=== PATIENT | female | born 1960 | race Caucasian/White ===

== ENCOUNTER → 2018-11-23 | Outpatient (CLI) | payer BC ==
--- NOTE | 2018-11-23 08:34 | CT ---
EXAMINATION TYPE: CT sinus wo con DATE OF EXAM: 11/23/2018 COMPARISON: None HISTORY: Chronic sinusitis CT DLP: 602 mGycm CONTRAST: 0 mL of Isovue 300 The paranasal sinuses are examined in the axial plane at 2 mm thick sections. Reconstructed images i n the coronal plane were obtained. There is dental amalgam scatter artifact There is a retention cyst within the inferior right maxillary sinus. Small area of opacification is within the posterior lateral right ethmoid air cell The sphenoid sinuses are clear. The frontal sin uses are clear. Remaining paranasal sinuses and mastoid air cells are clear The septum is evaluated. There is septal deviation to the left. The ostiomeatal units are patent. Miguel Angel air cells are present. IMPRESSIONS: 1. Small retention cysts within the inferior right maxillary within the posterior right ethmoid air cell
== END | disposition home or self-care (01) ==
LOC: RADCTMAIN 07:50
PROVIDERS: ATTEND Otolaryngology
DX: J34.1 Cyst and mucocele of nose and nasal sinus (principal); J32.9 Chronic sinusitis, unspecified
CPT/HCPCS: 70486

== ENCOUNTER → 2024-06-21 | Day surgery (SDC) | payer MEDICARE, BC ==
--- NOTE | 2024-06-20 17:08 | HP ---
HISTORY AND PHYSICAL CHIEF COMPLAINT: Fluid in both ears. HISTORY OF PRESENT ILLNESS: This patient is a 63-year-old female, who was recently seen in my office, complaining of having a block sensation and pressure in both ears. She had recently experienced an upper respiratory tract infection and was treated with oral antibiotics and a Medrol Dosepak. After completing the medication, she noticed that there was pressure in both ears, and they felt plugged. At the time, the patient was seen in my office, clinical examination of the ears revealed chronic bilateral serous otitis media, so-called glue ear. The patient was given two courses of dexamethasone tablets. She was seen back in the office, and at that time, had stated there had been no improvement. Clinical examination of the ears reveals she still had fluid in both ears. It was, therefore, recommended that she undergo a bilateral myringotomy with insertion of ventilation tubes under IV sedation with MAC. PAST MEDICAL HISTORY: Reveals that she has allergies to aspirin, sulfa, and Macrobid. SURGICAL HISTORY: Previous surgeries include tonsillectomy, adenoidectomy, tubal ligation, colonoscopy, she is 3 para, 1 , and two C-sections. MEDICATIONS: Her current medications include: 1. Prozac. 2. Vitamin D. REVIEW OF SYSTEMS: Completely noncontributory. PHYSICAL EXAMINATION: GENERAL: This patient is a 63-year-old female, who is alert and cooperative. HEENT: The patient is normocephalic. Both tympanic membranes are dull with fluid in both middle ear spaces. Pupils equal, round, reactive to light and accommodation. Extraocular movements within normal limits. Intranasal examination reveals moderate septal deviation with compensatory hypertrophy of the inferior turbinates and a moderate amount of mucus on the mucous membranes and draining down the posterior pharynx. Examination of oropharynx and the remainder of the head and neck exam are within normal limits. CHEST/CARDIOVASCULAR: Both lung betts are clear. The patient is in regular sinus rhythm. S1, S2 are present without any murmurs, S3s, or S4s. Peripheral pulses are bilaterally symmetrical. ABDOMEN: There is no evidence of any masses, megaly, or tenderness. The abdomen is soft. SKIN: Unremarkable. MUSCULOSKELETAL: Within normal limits. NEUROLOGICAL: Within normal limits. PELVIC/RECTAL: This should be printed. The pelvic/rectal exam is deferred at this time because the patient has this done on a regular basis at her family physician's office. The remainder of the physical exam is essentially unremarkable. IMPRESSION: Chronic bilateral serous otitis media. PLAN: The patient is scheduled undergo a bilateral myringotomy with insertion of ventilation tubes under IV sedation with MAC. Attention, RNs in the pre-surgical area, I have not ordered any pre-surgical prophylactic antibiotics for this patient. If the Pharmacy Department sends any pre- surgical prophylactic antibiotic to the pre-surgical area for this patient, then that order should be cancelled, and the medication should be returned to the Pharmacy Department. Also, please make sure that the patient's account is credited appropriately. I have discussed the risks, benefits and alternative therapies for the above-mentioned procedure and for both sedation/analgesia as well as necessary blood product administration, if indicated, as they pertain to this patient. The patient has indicated her understanding and acceptance of the risks and procedures discussed. MMEDGARL / IJN: [id number] /
[~2024-06-21] MED LIST: KETAMINE HCL IN 0.9 % NACL 50 MG/5 ML SYRINGE ONE; MIDAZOLAM 2 MG/2 ML VIAL ONE; PROPOFOL 10 MG/ML 20 ML VIAL IV ONE; Pre Op ABX Message 1 EACH MISC MISCELLANE ONE; fentaNYL (PF) 50 MCG/ML 2 ML AMP ONE
[2024-06-21] MEDS: IV FLUID CONTINUATION 1,000 ML IV ONE ×2 (08:43→10:36)
[2024-06-21 09:10] VITALS: RESP 16; TEMP 97.5
[2024-06-21] MEDS: LACTATED RINGERS 1,000 ML IV SCH (09:11)
[2024-06-21] MEDS: OFLOXACIN 0.3% OPHTH DROPS 5 ML BOTTLE BOTH EARS ONE (10:14)
[2024-06-21 10:56] VITALS: BP 158/83; PULSE 68
--- NOTE | 2024-06-24 12:35 | OP ---
OPERATIVE REPORT DATE OF SERVICE : 06/21/2024 PREOPERATIVE DIAGNOSIS: Chronic bilateral serous otitis media. POSTOPERATIVE DIAGNOSIS: Chronic bilateral serous otitis media. ANESTHESIA: General. OPERATIVE PROCEDURE: Bilateral myringotomy with insertion of plastic Alesha bobbin ventilation tubes. COMPLICATIONS: None. PROCEDURE: The patient was placed on the Operating table in the supine position after uneventful induction and IV sedation, satisfactory general anesthesia was obtained. Next, the operating microscope was brought into position over the patient's right ear where after insertion of a #3 aural speculum, the external canal was cleansed of all wax and debris. The myringotomy knife was used to make an incision in the anterior inferior quadrant of the right tympanic membrane. The middle ear space was suctioned free of all fluid and a 1.1 mm Alesha bobbin ventilation tube was inserted without any difficulty. Attention was then directed to the left ear where the same procedure was carried out using the operating microscope, #3 aural speculum, the external auditory canal was cleansed of all wax and debris. The myringotomy knife was used to make an incision in the anterior inferior quadrant of the left tympanic membrane and the middle ear space was suctioned free of all fluid. A 1.1 mm Alesha bobbin ventilation tube was inserted without any difficulty. At this point, the procedure was terminated. There were no intraoperative complications. The patient tolerated the procedure well and was returned to the Recovery Room in satisfactory condition. MMODL / IJN: [id number] /
== END | disposition home or self-care (01) ==
LOC: OR 08:36
PROVIDERS: ATTEND Otolaryngology
DX: H65.23 Chronic serous otitis media, bilateral (principal); Z98.51 Tubal ligation status; Z90.89 Acquired absence of other organs; Z87.891 Personal history of nicotine dependence; Z79.899 Other long term (current) drug therapy; Z88.2 Allergy status to sulfonamides; Z88.6 Allergy status to analgesic agent
CPT/HCPCS: 69436; J2250; J3010; J2704